=== PATIENT | female | born 1955 | race Caucasian/White ===

== ENCOUNTER 2019-08-26 09:31 | Outpatient (REF) | payer OTHER, SELFPAY ==
[2019-08-26 12:31] LABS: Estmated Average Glucose 123; Hemoglobin A1C 5.9 % (4.0-6.0)
[2019-08-26 13:59] LABS: Chol HDL Ratio 3.08 mg/dL (0.0-4.40); Cholesterol 234 mg/dL (0-200); Glucose 99 mg/dL (65-115); HDL Cholesterol 76 mg/dL (60-100); LDL Cholesterol Calculated 146 mg/dL (50-129); LDL HDL Ratio 1.92 RATIO (0.00-3.22); Triglycerides 60 mg/dL (0-150)
== END 2019-08-26 09:32 | disposition home or self-care (01) ==
LOC: LAB 09:31
PROVIDERS: Family Provider Family Medicine; Visit Provider Dermatology
DX: Z01.89 Encounter for other specified special examinations (principal)
CPT/HCPCS: 80061; 82947; 83036

== ENCOUNTER 2020-02-29 07:12 | Outpatient (CLI) | payer OTHER, SELFPAY ==
--- NOTE | 2020-02-29 07:25 | MM_ITS ---
WS: [id number] Bilateral screening digital mammogram, 02/29/2020 Clinical Data: SCREENING Comparison: 11/08/2018, 05/17/2018, 11/03/2017, 10/21/2017, 03/24/2012, 02/05/2011, 08/08/2009, 12/30/2007. Fi broglandular tissue Findings: The breast parenchymal pattern shows fat replacement. No spiculated masses or clustered calcification s are seen. There are no secondary signs of carcinoma. There are several mole markers on both breasts . MM/[id number] Impression: 1. Negative bilateral mammogram unchanged. 2. Recommend annual screening mammograms. BIRADS: 1-Negative FOLLOW UP: 1 Year Follow-up The CAD steel checker was used.
== END 2020-02-29 07:13 | disposition home or self-care (01) ==
LOC: RADSHAW 07:15
PROVIDERS: Visit Provider Family Medicine
DX: Z12.31 Encounter for screening mammogram for malignant neoplasm of breast (principal)
CPT/HCPCS: 77067

== ENCOUNTER 2021-03-04 07:27 | Outpatient (CLI) | payer OTHER, SELFPAY ==
--- NOTE | 2021-03-04 07:40 | MM_ITS ---
WS: [id number] BILATERAL DIGITAL SCREENING MAMMOGRAPHY WITH CAD CLINICAL INFORMATION: SCREEN HISTORY: Screening mammogram. No current complaints. COMPARISON: February 29, 2020 TECHNIQUE: Bilateral CC and MLO views. FINDINGS: Scattered fibroglandular densities bilaterally. Tiny punctate calcification right breast. Stable intr amammary lymph node anterior right breast. No suspicious focal mass, asymmetry, calcifications, or ar chitectural distortion. No evidence of malignancy. MM/[id number] IMPRESSION: BI-RADS: 2-Benign FOLLOW UP: 1 Year Follow-up Recommend return to annual screening mammography.
== END 2021-03-04 07:28 | disposition home or self-care (01) ==
LOC: RADSHAW 07:34
PROVIDERS: PCP Nurse Practitioner Family; Visit Provider Nurse Practitioner Family
DX: Z12.31 Encounter for screening mammogram for malignant neoplasm of breast (principal)
CPT/HCPCS: 77067

== ENCOUNTER 2021-04-25 14:11 | Outpatient (CLI) | payer SELFPAY | END 2021-04-25 14:12 | disposition home or self-care (01) | PROVIDERS: PCP Nurse Practitioner Family; Visit Provider Nurse Practitioner Family | DX: R19.7 Diarrhea, unspecified (principal) | CPT/HCPCS: 83630; 87493; 87506 ==

== ENCOUNTER 2022-08-11 07:02 | Outpatient (CLI) | payer MEDICARE, SELFPAY ==
--- NOTE | 2022-08-11 07:38 | MM_ITS ---
WS: [id number] BILATERAL SCREENING DIGITAL TOMOSYNTHESIS MAMMOGRAM WITH CAD HISTORY: SCREENING COMPARISON: 03/04/2021, 02/29/2020 and 05/17/2018 Bilateral CC and MLO views with tomosynthesis and synthetic mammography submitted. Computer aided det ection analyzed. Breast composition: There are scattered areas of fibroglandular density. No suspicious masses, microc alcifications or architectural distortion. Reidentified calcifications in the upper outer quadrant of the RIGHT breast are stable. Breast arterial calcifications also present. MM/[id number] IMPRESSION: BI-RADS: 2-Benign FOLLOW UP: 1 Year Follow-up
== END 2022-08-11 07:03 | disposition home or self-care (01) ==
PROVIDERS: PCP Nurse Practitioner Family; Visit Provider Nurse Practitioner Family
DX: Z12.31 Encounter for screening mammogram for malignant neoplasm of breast (principal)
CPT/HCPCS: 77063; 77067

== ENCOUNTER 2023-03-15 16:26 | Emergency (ER) | payer MEDICARE, SELFPAY ==
[2023-03-15] VITALS (7 sets, daily range): BP systolic 129–148; BP diastolic 77–93; PULSE 70–80; RESP 14–18; TEMP 36.8; O2SAT 94–98; BMI 26.2
--- NOTE | 2023-03-15 16:28 | ECG_ITS ---
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 Measurements Intervals [place] Rate: 80 P: 18 VA: 160 QRS: 14 QRSD: 81 T: -4 QT: 372 QTc: 430 Interpretive Statements SINUS RHYTHM No previous ECG available for comparison Electronically Signed On 03-16-2023 8:14:15 CDT by Jackson Calvo M.D. [id number]
--- NOTE | 2023-03-15 16:43 | XRR_ITS ---
PROCEDURE INFORMATION: Exam: XR Chest Exam date and time: 03/15/2023 5:07 PM Age: 67 years old Clinical indication: Chest wall pain; Additional info: Chest pain TECHNIQUE: Imaging protocol: Radiologic exam of the chest. Views: 1 view. COMPARISON: No relevant prior studies available. FINDINGS: Lungs: Unremarkable. No consolidation. Pleural spaces: Unremarkable. No pleural effusion. No pneumothorax. Heart/Mediastinum: Unremarkable. No cardiomegaly. Bones/joints: Unremarkable for age. XR/XR chest 1V portable [id number] IMPRESSION: Negative chest exam.
--- NOTE | 2023-03-15 16:44 | ED_ITS ---
Documented by User: Javier Walters DO 03/15/23 18:09 HPI - Chest Pain General: Chief Complaint: Chest Pain Stated Complaint: chest pain Time Seen by Provider: 03/15/23 16:43 Source: patient Mode of arrival: ambulatory History of Present Illness: 67-year-old female presents emergency room complaining of chest pain that began earlier today. No radiation pain worse when she takes a deep breath. States she woke up with it this morning around 8 AM no fever sweats chills no productive cough. No personal history of coronary disease she states that several family members have had coronary artery disease in their 40s. MD complaint: chest pain Onset (ago): hour(s) Timing of current episode: episodic Onset: during rest Pain location: left chest Pain radiation: none Quality: aching Relieving factors: nothing Exacerbating factors: inspiration Associated symptoms: Deny abdominal pain, diaphoresis, dyspnea, fever(s), leg edema, nausea, palpitations, sense of impending doom, syncope or vomiting Review of Systems Const: Denies: fever(s), chills or diaphoresis Card: Reports: chest pain; Denies: palpitations or syncope Resp: Denies: dyspnea, productive cough or non-productive cough GI: Denies: abdominal pain, nausea or vomiting : Denies: flank pain, difficulty voiding, dysuria, urinary frequency or urinary urgency Skin/Breast: Denies: rash or pruritus PFSH ED PFSH: Medical History Basal cell carcinoma of skin Surgical History Status post tonsillectomy Family History Mother Dementia Father CAD (coronary artery disease) Social History Smoking and tobacco status: former smoker Physical Exam Const: GENERAL APPEARANCE: cooperative and comfortable ORIENTATION/CONSCIOUSNESS: Yes awake, Yes oriented to person, Yes oriented to place and Yes oriented to time HENMT: COMMON NORMALS: normocephalic, atraumatic and hearing grossly normal bilaterally HEAD & SCALP: normocephalic and atraumatic Resp: COMMON NORMALS: normal respiratory effort, No retractions, No use of accessory muscles and clear to auscultation bilaterally AUSCULTATION: clear to auscultation bilaterally Cardio: COMMON NORMALS: regular rate, regular rhythm and No murmurs present (Cardio) RATE: regular rate RHYTHM: regular rhythm GI: COMMON NORMALS: Soft to palpation and No hepatosplenomegaly present AUSCULTATION: Yes normoactive bowel sounds PALPATION: Yes Soft to palpation, No Tenderness to palpation present (GI), No Guarding due to palpation present (GI) and Yes No hepatosplenomegaly present Extremity: COMMON NORMALS: normal to inspection, capillary refill normal, no clubbing, cyanosis or edema, no calf tenderness and no pedal edema Neuro: SENSORIUM/ORIENTATION: Yes oriented to person, Yes oriented to place and Yes oriented to time Skin: COMMON NORMALS: no rashes or lesions noted GENERAL SKIN EXAM: no rashes or lesions noted Course Vital Signs: Vital signs: Vital Signs Temperature 98.3 F 03/15/23 16:34 Pulse Rate 80 03/15/23 21:15 Respiratory Rate 16 03/15/23 21:15 Blood Pressure 141/90 03/15/23 21:15 Pulse Oximetry 95 03/15/23 21:15 Oxygen Delivery Me thod Room Air 03/15/23 20:30 MDM - Chest Pain Medical Decision Making Initial EKG shows normal sinus rhythm no acute ST changes noted. 2-hour troponin pending. Care signed out to Dr. Guerrero at change of shift. See final notes for diagnosis and disposition. Lab Data 03/15/23 16:50 03/15/23 16:50 Radiology Impressions Chest X-Ray 03/15/23 16:43 IMPRESSION: Negative chest exam. Laboratory Results WBC 11.11 10^3/uL (3.29-11.43) 03/15/23 16:50 RBC 5.10 10^6/uL (3.85-5.65) 03/15/23 16:50 Hgb 14.90 g/dL (11.27-16.99) 03/15/23 16:50 Hct 45.1 % (36-47) 03/15/23 16:50 MCV 88.4 fl (85-98) 03/15/23 16:50 MCH 29.2 pg (27-33) 03/15/23 16:50 MCHC 33.0 g/dL (30-55) 03/15/23 16:50 RDW 12.1 % (12.1-15.1) 03/15/23 16:50 Plt Count 308 10^3/cmm (157-399) 03/15/23 16:50 MPV 9.2 fL (7.4-10.4) 03/15/23 16:50 Neut % (Auto) 66.0 % 03/15/23 16:50 Lymph % (Auto) 24.8 % 03/15/23 16:50 Whiteside % (Auto) 7.3 % 03/15/23 16:50 Eos % (Auto) 0.9 % 03/15/23 16:50 Baso % (Auto) 0.7 % 03/15/23 16:50 Neut # (Auto) 7.33 10^3/uL (1.8-7.7) 03/15/23 16:50 Lymph # (Auto) 2.8 10^3/uL (0.8-4.8) 03/15/23 16:50 Whiteside # (Auto) 0.8 10^3/uL (0.2-0.9) 03/15/23 16:50 Eos # (Auto) 0.1 10^3/uL (0.0-0.8) 03/15/23 16:50 Baso # (Auto) 0.1 10^3/uL (0.0-0.1) 03/15/23 16:50 Nucleated RBC % (auto) 0 % 03/15/23 16:50 Nucleated RBCs # 0.0 /100WBC 03/15/23 16:50 Sodium 141 mmol/L (136-145) 03/15/23 16:50 Potassium 4.1 mmol/L (3.5-5.1) 03/15/23 16:50 Chloride 106 mmol/L (98-107) 03/15/23 16:50 Carbon Dioxide 26 mmol/L (22-29) 03/15/23 16:50 Anion Gap 13.1 (5-19) 03/15/23 16:50 BUN 14 mg/dL (8-23) 03/15/23 16:50 Creatinine 1.0 mg/dL (0.5-0.9) H 03/15/23 16:50 GFR Calculation 55.6 mL/min (90-130) L 03/15/23 16:50 Glucose 105 mg/dL (65-115) 03/15/23 16:50 Calculated Osmolality 293 mOsm/kg (285-295) 03/15/23 16:50 Calcium 9.1 mg/dL (8.5-10.5) 03/15/23 16:50 Total Bilirubin 0.3 mg/dL (0.15-1.2) 03/15/23 16:50 AST 19 U/L (0-32) 03/15/23 16:50 ALT 17 U/L (0-33) 03/15/23 16:50 Alkaline Phosphatase 81 U/L (35-105) 03/15/23 16:50 Troponin T Baseline 6 ng/L (0-10) 03/15/23 16:50 Troponin T 120 Minute 6 ng/L (0-10) 03/15/23 18:43 Delta Troponin T 0 ABS# (0-10) 03/15/23 18:43 Total Protein 6.3 g/dL (6.6-8.7) L 03/15/23 16:50 Albumin 4.3 g/dL (3.5-5.2) 03/15/23 16:50 Globulin 2.0 g/dL (1.3-4.6) 03/15/23 16:50 Discharge Plan Discharge Patient Disposition: Home Clinical Impression: Atypical chest pain Condition: Stable Prescriptions: New hydrocodone-acetaminophen 5-325 mg tablet 1 tab PO Q8H PRN (Reason: pain) Qty: 7 0RF Medrol (Erlin) 4 mg tablets,dose pack See Rx Instructions .ROUTE .COMPLEX Qty: 21 0RF Rx Instructions: orally per package directions No Action hydroxyzine HCl 25 mg tablet PO Discharge Orders: Discharge ED (Routine); Ordered 03/15/23 Ordered By: Brice Guerrero Referrals: Jorden Poe NP [Primary Care Provider] - 1-3 days Patient Instructions: Chest Pain (ED), Chest Wall Pain (ED), Opioid Safety, Pain Management Activity Restrictions/Additional Instructions: Return for worsening chest pain despite treatment, development of cough or shortness of breath that is significant, fever, other concerning symptoms. Follow-up with your doctor. Further outpatient tests may be necessary. Coding Level of Care Code ED Organizational Psychologist for Chg Fwd Documented by User: Brice Guerrero DO 03/15/23 21:23 HPI - Chest Pain General: Chief Complaint: Chest Pain Stated Complaint: chest pain Time Seen by Provider: 03/15/23 16:43 PFSH ED PFSH: Medical History Basal cell carcinoma of skin Surgical History Status post tonsillectomy Family History Mother Dementia Father CAD (coronary artery disease) Social History Smoking and tobacco status: former smoker Course Vital Signs: Vital signs: Vital Signs Temperature 98.3 F 03/15/23 16:34 Pulse Rate 80 03/15/23 21:15 Respiratory Rate 16 03/15/23 21:15 Blood Pressure 141/90 03/15/23 21:15 Pulse Oximetry 95 03/15/23 21:15 Oxygen Delivery Me thod Room Air 03/15/23 20:30 MDM - Chest Pain Medical Decision Making Initial EKG shows normal sinus rhythm no acute ST changes noted. 2-hour troponin pending. Care signed out to Dr. Guerrero at change of shift. See final notes for diagnosis and disposition. 67-year-old female checked out to me by Dr. Barber. Chest discomfort, worse with a deep breath. Mainly left-sided. EKG #2 shows sinus rhythm with a rate of 65, normal axis and intervals. There is minimal J-point elevation in lead III and aVF. Delta troponin is 0. Other laboratory is not remarkable. Chest x-ray is negative. Patient wishes to go home. She will be allowed home for outpatient follow-up. We will treat her for costochondritis/pleurisy. Lab Data 03/15/23 16:50 03/15/23 16:50 Radiology Impressions Chest X-Ray 03/15/23 16:43 IMPRESSION: Negative chest exam. Laboratory Results WBC 11.11 10^3/uL (3.29-11.43) 03/15/23 16:50 RBC 5.10 10^6/uL (3.85-5.65) 03/15/23 16:50 Hgb 14.90 g/dL (11.27-16.99) 03/15/23 16:50 Hct 45.1 % (36-47) 03/15/23 16:50 MCV 88.4 fl (85-98) 03/15/23 16:50 MCH 29.2 pg (27-33) 03/15/23 16:50 MCHC 33.0 g/dL (30-55) 03/15/23 16:50 RDW 12.1 % (12.1-15.1) 03/15/23 16:50 Plt Count 308 10^3/cmm (157-399) 03/15/23 16:50 MPV 9.2 fL (7.4-10.4) 03/15/23 16:50 Neut % (Auto) 66.0 % 03/15/23 16:50 Lymph % (Auto) 24.8 % 03/15/23 16:50 Whiteside % (Auto) 7.3 % 03/15/23 16:50 Eos % (Auto) 0.9 % 03/15/23 16:50 Baso % (Auto) 0.7 % 03/15/23 16:50 Neut # (Auto) 7.33 10^3/uL (1.8-7.7) 03/15/23 16:50 Lymph # (Auto) 2.8 10^3/uL (0.8-4.8) 03/15/23 16:50 Whiteside # (Auto) 0.8 10^3/uL (0.2-0.9) 03/15/23 16:50 Eos # (Auto) 0.1 10^3/uL (0.0-0.8) 03/15/23 16:50 Baso # (Auto) 0.1 10^3/uL (0.0-0.1) 03/15/23 16:50 Nucleated RBC % (auto) 0 % 03/15/23 16:50 Nucleated RBCs # 0.0 /100WBC 03/15/23 16:50 Sodium 141 mmol/L (136-145) 03/15/23 16:50 Potassium 4.1 mmol/L (3.5-5.1) 03/15/23 16:50 Chloride 106 mmol/L (98-107) 03/15/23 16:50 Carbon Dioxide 26 mmol/L (22-29) 03/15/23 16:50 Anion Gap 13.1 (5-19) 03/15/23 16:50 BUN 14 mg/dL (8-23) 03/15/23 16:50 Creatinine 1.0 mg/dL (0.5-0.9) H 03/15/23 16:50 GFR Calculation 55.6 mL/min (90-130) L 03/15/23 16:50 Glucose 105 mg/dL (65-115) 03/15/23 16:50 Calculated Osmolality 293 mOsm/kg (285-295) 03/15/23 16:50 Calcium 9.1 mg/dL (8.5-10.5) 03/15/23 16:50 Total Bilirubin 0.3 mg/dL (0.15-1.2) 03/15/23 16:50 AST 19 U/L (0-32) 03/15/23 16:50 ALT 17 U/L (0-33) 03/15/23 16:50 Alkaline Phosphatase 81 U/L (35-105) 03/15/23 16:50 Troponin T Baseline 6 ng/L (0-10) 03/15/23 16:50 Troponin T 120 Minute 6 ng/L (0-10) 03/15/23 18:43 Delta Troponin T 0 ABS# (0-10) 03/15/23 18:43 Total Protein 6.3 g/dL (6.6-8.7) L 03/15/23 16:50 Albumin 4.3 g/dL (3.5-5.2) 03/15/23 16:50 Globulin 2.0 g/dL (1.3-4.6) 03/15/23 16:50 Discharge Plan Discharge Patient Disposition: Home Clinical Impression: Atypical chest pain Condition: Stable Prescriptions: New hydrocodone-acetaminophen 5-325 mg tablet 1 tab PO Q8H PRN (Reason: pain) Qty: 7 0RF Medrol (Erlin) 4 mg tablets,dose pack See Rx Instructions .ROUTE .COMPLEX Qty: 21 0RF Rx Instructions: orally per package directions No Action hydroxyzine HCl 25 mg tablet PO Discharge Orders: Discharge ED (Routine); Ordered 03/15/23 Ordered By: Brice Guerrero Referrals: Jorden Poe, CL[facility] [employer]ER BACK TENDER [Primary Care Provider] - 1-3 days Patient Instructions: Chest Pain (ED), Chest Wall Pain (ED), Opioid Safety, Pain Management Activity Restrictions/Additional Instructions: Return for worsening chest pain despite treatment, development of cough or shortness of breath that is significant, fever, other concerning symptoms. Follow-up with your doctor. Further outpatient tests may be necessary. Coding Level of Care Code ED Organizational Psychologist for Omid Wall
[2023-03-15 16:55] LABS: Basophils # 0.1 10^3/uL (0.0-0.1); Basophils % 0.7 %; Eosinophils # 0.1 10^3/uL (0.0-0.8); Eosinophils % 0.9 %; Hematocrit 45.1 % (36-47); Lymphocytes # 2.8 10^3/uL (0.8-4.8); Lymphocytes % 24.8 %; Mean Corpuscular Hemoglobin 29.2 pg (27-33); Mean Corpuscular Volume 88.4 fl (85-98); Mean Platelet Volume 9.2 fL (7.4-10.4); Monocytes # 0.8 10^3/uL (0.2-0.9); Monocytes % 7.3 %; Neutrophils # 7.33 10^3/uL (1.8-7.7); Nucleated Red Blood Cells % 0 %; Platelet Count 308 10^3/cmm (157-399); Red Cell Distribution Width 12.1 % (12.1-15.1); White Blood Count 11.11 10^3/uL (3.29-11.43)
[2023-03-15] MEDS: aspirin 81 mg Chew Tablet 324 MG PO (17:06)
[2023-03-15 17:13] LABS: Troponin(5th) Baseline 6 ng/L (0-10)
[2023-03-15 17:14] LABS: Alanine Aminotransferase 17 U/L (0-33); Albumin Level 4.3 g/dL (3.5-5.2); Alkaline Phosphatase 81 U/L (35-105); Anion Gap 13.1 (5-19); Aspartate Amino Transferase 19 U/L (0-32); Blood Urea Nitrogen 14 mg/dL (8-23); Calcium 9.1 mg/dL (8.5-10.5); Carbon Dioxide 26 mmol/L (22-29); Chloride 106 mmol/L (98-107); Creatinine Clr Calc Pharmacy 59.5531; Glomerular Filtration Rate 55.6 mL/min (90-130); Glucose 105 mg/dL (65-115); Osmolality Calculated 293 mOsm/kg (285-295); Potassium 4.1 mmol/L (3.5-5.1); Sodium 141 mmol/L (136-145); Total Bilirubin 0.3 mg/dL (0.15-1.2); Total Protein 6.3 g/dL (6.6-8.7)
--- NOTE | 2023-03-15 18:43 | ECG_ITS ---
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 Measurements Intervals [place] Rate: 67 P: 54 [place]: 188 QRS: 43 QRSD: 93 T: 60 QT: 392 QTc: 416 Interpretive Statements SINUS RHYTHM LOW QRS VOLTAGE IN PRECORDIAL LEADS [QRS DEFLECTION < 1.0 mV IN CHEST LEADS] Compared to ECG 03/15/2023 16:33:25 Low QRS voltage now present Electronically Signed On 03-16-2023 8:14:41 CDT by Jackson Calvo M.D. [id number]
[2023-03-15 19:27] LABS: Troponin 5 2HR 6 ng/L (0-10); Troponin 5 2HR Delta 0 ABS# (0-10)
[2023-03-15] MEDS: dexamethasone 4 mg Tablet 10 MG PO (21:06)
--- NOTE | 2023-03-15 21:13 | PC.NURSE ---
per to send pt home with oxyCODONE-APAP 5-325 mg x2 tabs, handed x2 tabs to pt, educated pt to take one when at home and one 8 hours after first tab.
== END 2023-03-15 21:17 | disposition home or self-care (01) ==
PROVIDERS: Family Medicine; Emergency Provider Emergency Medicine; PCP Nurse Practitioner Family
DX: R07.89 Other chest pain (principal); Z87.891 Personal history of nicotine dependence
CPT/HCPCS: 36415; 71045; 80053; 84484; 85025; 93005; 99285; J8540

== ENCOUNTER → 2023-03-24 12:38 | Outpatient (BNVA) | payer MEDICARE, SELFPAY | PROVIDERS: PCP Nurse Practitioner Family; Visit Provider Dermatology | DX: L91.8 Other hypertrophic disorders of the skin (principal); L81.4 Other melanin hyperpigmentation; L57.8 Other skin changes due to chronic exposure to nonionizing radiation; Z85.828 Personal history of other malignant neoplasm of skin; B00.1 Herpesviral vesicular dermatitis; D23.62 Other benign neoplasm of skin of left upper limb, including shoulder; L82.1 Other seborrheic keratosis | CPT/HCPCS: 11200; 99213 ==

== ENCOUNTER 2023-10-14 08:43 | Outpatient (CLI) | payer MEDICARE, SELFPAY ==
--- NOTE | 2023-10-14 09:33 | MM_ITS ---
WS: [id number] VIEWS: MLO and CC views both breasts. 3D digital tomosynthesis is also included in this exam. Comparison made with prior exam of 08/08/2009, 02/05/2011, 03/24/2012, 10/21/2017, 05/17/2018, 11/08/2018, , 03/04/2021, 08/11/2022,. Findings: There was no sign of mass, architectural distortion or suspicious calcification in either breast. The re are scattered areas of fibroglandular density Impression: MM/[id number] BI-RADS: 1-Negative FOLLOW-UP: 1 Year Follow-up This mammogram was also analyzed by the Computer Aided Detection System R2 Imag e Event Promotions Coordinator.
== END 2023-10-14 08:44 | disposition home or self-care (01) ==
LOC: RAD 08:44
PROVIDERS: PCP Nurse Practitioner Family; Visit Provider Nurse Practitioner Family
DX: Z12.31 Encounter for screening mammogram for malignant neoplasm of breast (principal)
CPT/HCPCS: 77063; 77067

== ENCOUNTER → 2024-03-24 08:15 | Outpatient (BNVA) | payer MEDICARE, SELFPAY | PROVIDERS: PCP Nurse Practitioner Family; Visit Provider Nurse Practitioner Family | DX: L81.4 Other melanin hyperpigmentation (principal); L82.1 Other seborrheic keratosis; L57.8 Other skin changes due to chronic exposure to nonionizing radiation; B00.1 Herpesviral vesicular dermatitis; D23.62 Other benign neoplasm of skin of left upper limb, including shoulder; L57.0 Actinic keratosis; L82.0 Inflamed seborrheic keratosis; D18.01 Hemangioma of skin and subcutaneous tissue; D23.71 Other benign neoplasm of skin of right lower limb, including hip; Z85.828 Personal history of other malignant neoplasm of skin | CPT/HCPCS: 17000; 17110; 99213 ==

== ENCOUNTER 2024-11-11 10:41 | Outpatient (CLI) | payer MEDICARE, SELFPAY ==
--- NOTE | 2024-11-11 10:51 | MM_ITS ---
WS: [id number] BILATERAL 3D TOMOSYNTHESIS DIGITAL SCREENING MAMMOGRAPHY WITH CAD CLINICAL INFORMATION: SCREENING HISTORY: Screening mammogram. No current complaints. COMPARISON: 2023 TECHNIQUE: Bilateral CC and MLO views. FINDINGS: Scattered fibroglandular densities bilaterally. No suspicious focal mass, asymmetry, calcifications, or architectural distortion. No evidence of malignancy. Vascular calcification. MM/MM scr tomosynthesis [id number] IMPRESSION: DENSITY: There are scattered areas of fibroglandular density. BI-RADS: 2 - Benign. FOLLOW UP: 1 Year Follow-up Recommend return to annual screening mammography.
== END 2024-11-11 10:42 | disposition home or self-care (01) ==
PROVIDERS: PCP Nurse Practitioner Family; Visit Provider Nurse Practitioner Family
DX: Z12.31 Encounter for screening mammogram for malignant neoplasm of breast (principal); R92.323 Mammographic fibroglandular density, bilateral breasts; R92.1 Mammographic calcification found on diagnostic imaging of breast
CPT/HCPCS: 77063; 77067

== ENCOUNTER → 2025-03-24 08:19 | Outpatient (BNVA) | payer MEDICARE, SELFPAY | PROVIDERS: PCP Nurse Practitioner Family; Visit Provider Nurse Practitioner Family | DX: L81.4 Other melanin hyperpigmentation (principal); L82.1 Other seborrheic keratosis; L57.8 Other skin changes due to chronic exposure to nonionizing radiation; D23.62 Other benign neoplasm of skin of left upper limb, including shoulder; D18.01 Hemangioma of skin and subcutaneous tissue; Z08 Encounter for follow-up examination after completed treatment for malignant neoplasm; Z85.828 Personal history of other malignant neoplasm of skin; L82.0 Inflamed seborrheic keratosis; Z78.9 Other specified health status; L56.8 Other specified acute skin changes due to ultraviolet radiation | CPT/HCPCS: 17000; 17110; 99213 ==